=== PATIENT | male | born 1990 | race Caucasian/White ===

== ENCOUNTER 2025-07-04 19:39 | Emergency (ER) | payer SELFPAY ==
--- NOTE | ~2025-07-04 | XR_ITS ---
EXAMINATION: XR chest 2V 07/04/2025 19:58 INDICATION: Shortness of breath. PROCEDURE: 2 view chest COMPARISON: No prior studies for comparison. FINDINGS: The lungs are clear. The cardiomediastinal silhouette is within normal limits. There are no pleural effusions. There is no pneumothorax suspected. IMPRESSION: 1: NO ACUTE CARDIOPULMONARY DISEASE. Reviewed, dictated and finalized at location O. ARCH AND DEVELOPMENT DIRECTOR
[2025-07-04 19:44] VITALS: BP 152/88; PULSE 92; RESP 16; TEMP 36.3; O2SAT 97
--- NOTE | 2025-07-04 19:46 | ECG_ITS ---
Test Date: 2025-07-04 19:49:46 Measurements Intervals [place] Rate: 91 P: 37 ND: 161 QRS: 12 QRSD: 87 T: 14 QT: 321 QTc: 396 Interpretive Statements SINUS RHYTHM POSSIBLE LEFT ATRIAL ENLARGEMENT MINIMAL Q WAVES- HIGH LATERAL LEADS BORDERLINE ECG No previous ECG available for comparison Electronically Signed On 07-04-2025 20:37:25 E LEARNING DEVELOPER by Javy Grullon D.O.
== END 2025-07-04 22:05 | disposition left against medical advice (07) ==
PROVIDERS: Emergency Provider Emergency Medicine
DX: R06.02 Shortness of breath (principal)
CPT/HCPCS: 71046; 93005; 99199